=== PATIENT | male | born 1990 | race Caucasian/White ===

== ENCOUNTER 2017-01-10 12:48 | Emergency (ER) | payer SELFPAY ==
[~2017-01-10] VITALS: Ht 175.3 cm; Wt 69.9 kg
--- NOTE | 2017-01-10 13:16 | ED Lower Extremity ---
General Chief Complaint: Lower Extremity Stated Complaint: LEFT KNEE PAIN Source: patient Exam Limitations: no limitations History of Present Illness Time seen by provider: 13:15 Initial Comments To ER with left knee pain for 2 weeks after jumping out of a dump truck in [place] 2 weeks ago. States had a history of prior knee injuries even before jumping out of a dump truck. Onset: just prior to arrival Severity: moderate Pain/Injury Location: left knee Method of Injury: twisted Modifying Factors: Worse With Movement Allergies and Home Medications Allergies Coded Allergies: naproxen (Verified Allergy, Unknown, RASH, 01/10/17) Home Medications No Active Prescriptions or Reported Meds Constitutional: see HPI EENTM: see HPI Respiratory: no symptoms reported Cardiovascular: no symptoms reported Genitourinary: no symptoms reported Musculoskeletal: see HPI Skin: no symptoms reported Psychiatric/Neurological: No Symptoms Reported Past [id number]-Dstryb Hx Patient Social History Recent Foreign Travel: No Contact w/Someone Who Travel: No Physical Exam Vital Signs Vital Sign - Last 12Hours 01/10/17 13:03 Temp 98.0 Pulse 68 Resp 16 B/P (MAP) 120/84 Pulse Ox 98 Capillary Refill : General Appearance: WD/WN, no apparent distress HEENT: PERRL/EOMI, normal ENT inspection Neck: non-tender, full range of motion Respiratory: no respiratory distress, no accessory muscle use Gastrointestinal: normal bowel sounds, non tender, soft Hips: bilateral hip non-tender, bilateral hip normal inspection, bilateral hip normal range of motion Legs: bilateral leg non-tender, bilateral leg normal inspection, bilateral leg normal range of motion Knees: bilateral knee non-tender, bilateral knee normal inspection, bilateral knee normal range of motion, bilateral knee other (ambulatory without abnormalities of gait or use of assistive device, no swelling ecchymosis or erythema of the knee) Ankles: bilateral ankle non-tender, bilateral ankle normal inspection, bilateral ankle normal range of motion Feet: bilateral foot non-tender, bilateral foot normal inspection, bilateral foot normal range of motion Neurologic/Psychiatric: alert, normal mood/affect, oriented x 3 Skin: normal color, warm/dry Progress/Results/Core Measures Results/Orders My Orders Orders - SUSY BRADSHAW APRN Knee, Left, 3 Views (01/10/17 13:14) Vital Signs/I&O Vital Sign - Last 12Hours 01/10/17 13:03 Temp 98.0 Pulse 68 Resp 16 B/P (MAP) 120/84 Pulse Ox 98 Departure Impression Impression: Primary Impression: Internal derangement of knee Disposition: HOME, SELF-CARE Condition: Stable Departure-Patient Inst. Decision time for Depature: 13:43 Referrals: NO,LOCAL PHYSICIAN (PCP/Family) Primary Care Physician Patient Instructions: Ligament Injuries in the Knee (DC) Add. Discharge Instructions: 1. You should follow-up with your regular physician at the [facility] to schedule an MRI of the knee to evaluate for a ligament or meniscus injury 2. Medications as directed 3. All discharge instructions reviewed with patient and/or family. Voiced understanding. Scripts No Active Prescriptions or Reported Meds SUSY BRADSHAW APRN Jan 10, 2017 13:16
--- NOTE | 2017-01-10 13:54 | Diagnostic Imaging Report ---
INDICATION: Knee pain status post injury COMPARISON: None. FINDINGS: 3 views of the left knee joint demonstrate no acute fracture or dislocation. No focal osseous lesions are seen. No significant joint effusion is seen. The surrounding soft tissue structures are unremarkable. There are no radiopaque foreign bodies. IMPRESSION: No acute fractures or dislocations of the left knee joint. Dictated by: Dictated on workstation # [id number]
[2017-01-10 13:59] VITALS: BP 124/72
== END 2017-01-10 13:59 | disposition home or self-care (01) ==
LOC: ER 12:51
DX: M23.92 Unspecified internal derangement of left knee (principal)
CPT/HCPCS: 73562; 99283